=== PATIENT | male | born 1990 | race Caucasian/White ===

== ENCOUNTER 2017-12-02 15:17 | Observation (INO) | payer OTHER ==
[2017-12-02] MEDS ORDERED: BENADRYL 50 MG/ML IV ONE (15:25)
[2017-12-02] MEDS ORDERED: solu-MEDROL 125 MG IV ONE (15:25)
[2017-12-02] MEDS ORDERED: Sodium Chloride 0.9% 1000 ML 1,000 ML IV STA (15:25)
[2017-12-02] MEDS ORDERED: EPINEPHRINE 1MG/ML AMP IM ONE (15:25)
[2017-12-02] MEDS ORDERED: Pepcid 20 MG VIAL IV ONE ×2 (15:25→15:34)
[2017-12-02] MEDS ORDERED: DECADRON 10MG INJ. IV ONE (15:26)
[2017-12-02] MEDS ORDERED: BENADRYL 50 MG/ML ONE (15:34)
[2017-12-02] MEDS ORDERED: DECADRON 10MG INJ. ONE (15:35)
[2017-12-02] MEDS ORDERED: EPINEPHRINE 1MG/ML AMP ONE (15:35)
[2017-12-02] MEDS ORDERED: solu-MEDROL 125 MG ONE (15:35)
[2017-12-02] MEDS ORDERED: Sodium Chloride 0.9% 1000 ML 1,000 ML ONE (15:35)
[2017-12-02] MEDS ORDERED: Sodium Chloride 0.9% 1000 ML 1,000 ML IV SCH ×2 (17:30→19:00)
--- NOTE | 2017-12-02 18:48 | ERPHSYRPT ---
- History of Present Illness Time Seen by Provider: 12/02/17 15:40 Source: patient Exam Limitations: clinical condition Patient Subjective Stated Complaint: Allergic reaction, throat swelling, redness to chest. Triage Nursing Assessment: Pt presents to the ED with complaints of throat swelling and redness to chest after eating. Pt denies hx of allergic reactions. Pt states he felt short of breath, but improved with benadryl use. No distress noted on arrival, skin PWD, respirations even and unlabored. 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 DENIES STRIDOR OR DIFFICULTY BREATHING. Quality: itchy Severity: severe Location: face, extremities Possible Causes: no cause identified Associated Symptoms: other (DIFFICULTY BREATHING OR SWALLOWING.) Allergies/Adverse Reactions: sulfamethoxazole [From Bactrim] Allergy (Intermediate, Verified 12/02/17 15:30) Swelling of Face trimethoprim [From Bactrim] Allergy (Intermediate, Verified 12/02/17 15:30) Swelling of Face Home Medications: No Reportable Medications [No Reported Medications] 12/02/17 [History] Hx Tetanus, Diphtheria Vaccination/Date Given: Yes Hx Influenza Vaccination/Date Given: No Hx Pneumococcal Vaccination/Date Given: No Immunizations Up to Date: No - Review of Systems Constitutional: No Fever, No Chills Eyes: No Symptoms Ears, Nose, & Throat: Throat Swelling Respiratory: No Cough, No Dyspnea Cardiac: No Symptoms Abdominal/Gastrointestinal: No Abdominal Pain, No Nausea, No Vomiting, No Diarrhea Skin: Other (HIVES) - Past Medical History Pertinent Past Medical History: No Neurological History: No Pertinent History ENT History: No Pertinent History Cardiac History: No Pertinent History Respiratory History: No Pertinent History Endocrine Medical History: No Pertinent History Musculoskeletal History: No Pertinent History GI Medical History: No Pertinent History History: No Pertinent History Psycho-Social History: No Pertinent History Male Reproductive Disorders: No Pertinent History - Past Surgical History Past Surgical History: No Neuro Surgical History: No Pertinent History Cardiac: No Pertinent History Respiratory: No Pertinent History Gastrointestinal: No Pertinent History Genitourinary: No Pertinent History Musculoskeletal: No Pertinent History Male Surgical History: No Pertinent History - Social History Smoking Status: Light tobacco smoker Exposure to second hand smoke: Yes Drug Use: none Patient Lives Alone: No - Nursing Vital Signs Nursing Vital Signs: Initial Vital Signs Temperature 98.2 F 04/16/18 15:24 Pulse Rate 92 H 12/02/17 15:24 Respiratory Rate 16 12/02/17 15:24 Blood Pressure 170/101 12/02/17 15:24 O2 Sat by Pulse Oximetry 99 12/02/17 15:24 Pain Scale Pain Intensity 0 - Physical Exam General Appearance: no apparent distress, alert, other (ARRIVES TO EMERGENCY ROOM VIA EMS NO STRIDOR, NO ACCESSORY MUSCLE USE) Eye Exam: PERRL/EOMI, eyes nml inspection Ears, Nose, Throat Exam: pharynx normal, moist mucous membranes, other (MARKED SWELLING ELONGATION ANGIOEDEMA UVULA WITH POST PHARYNGEAL EDEMA) Neck Exam: normal inspection, non-tender, supple, full range of motion Respiratory Exam: normal breath sounds, lungs clear, other (NO WHEEZES OR RHONCHI), No respiratory distress Cardiovascular Exam: regular rate/rhythm, normal heart sounds Gastrointestinal/Abdomen Exam: soft, mass, No tenderness Back Exam: normal inspection, normal range of motion, No CVA tenderness, No vertebral tenderness Extremity Exam: normal inspection, normal range of motion Neurologic Exam: alert, oriented x 3, cooperative, normal mood/affect, sensation nml, No motor deficits Skin Exam: normal color, warm, dry SpO2: 97 Oxygen Delivery: Room Air - CT Exams Soft Tissue Neck CT Interpretation: Discussed w/radiologist (PROMINENT ELONGATION OF UVULA, OTHERWISE NEGATIVE) Ordered Tests: Active Orders 24 hr Category Date Time Status NECK WITH CONTRAST [CT] Stat Exams 12/02/17 18:28 Taken Medication Summary Generic Name Dose Route Start Last Admin Trade Name Freq PRN Reason Stop Dose Admin Sodium Chloride 1,000 mls @ 100 mls/hr 12/02/17 17:30 12/02/17 17:36 Sodium Chloride 0.9% 1000 Ml IV 01/01/18 17:29 100 mls/hr .Q10H JOE Administration Discontinued Medications Generic Name Dose Route Start Last Admin Trade Name Freq PRN Reason Stop Dose Admin Dexamethasone Sodium Phosphate 20 mg 12/02/17 15:26 12/02/17 15:39 Decadron 10mg Inj. IV 12/02/17 15:27 20 mg STAT ONE Administration Dexamethasone Sodium Phosphate Confirm 12/02/17 15:35 Decadron 10mg Inj. Administered 12/02/17 15:36 Dose 20 mg .ROUTE .STK-MED ONE Diphenhydramine HCl 50 mg 12/02/17 15:25 12/02/17 15:39 Benadryl 50 Mg/Ml IV 12/02/17 15:26 50 mg STAT ONE Administration Diphenhydramine HCl Confirm 12/02/17 15:34 Benadryl 50 Mg/Ml Administered 12/02/17 15:35 Dose 50 mg .ROUTE .STK-MED ONE Epinephrine HCl 0.3 mg 12/02/17 15:25 12/02/17 15:38 Epinephrine 1mg/Ml Amp IM 12/02/17 15:26 0.3 mg STAT ONE Administration Epinephrine HCl Confirm 12/02/17 15:35 Epinephrine 1mg/Ml Amp Administered 12/02/17 15:36 Dose 1 mg .ROUTE .STK-MED ONE Famotidine 20 mg 12/02/17 15:25 12/02/17 15:39 Pepcid 20 Mg Vial IV 12/02/17 15:26 20 mg STAT ONE Administration Famotidine Confirm 12/02/17 15:34 Pepcid 20 Mg Vial Administered 12/02/17 15:35 Dose 20 mg IV .STK-MED ONE Sodium Chloride 1,000 mls @ 999 mls/hr 12/02/17 15:25 12/02/17 15:38 Sodium Chloride 0.9% 1000 Ml IV 12/02/17 16:25 999 mls/hr .Q1H1M STA Administration Sodium Chloride Confirm 12/02/17 15:35 Sodium Chloride 0.9% 1000 Ml Administered 12/02/17 15:36 Dose 1,000 mls @ ud .ROUTE .STK-MED ONE Methylprednisolone Sodium Succinate 125 mg 12/02/17 15:25 12/02/17 15:39 Solu-Medrol 125 Mg IV 12/02/17 15:26 125 mg STAT ONE Administration Methylprednisolone Sodium Succinate Confirm 12/02/17 15:35 Solu-Medrol 125 Mg Administered 12/02/17 15:36 Dose 125 mg .ROUTE .STK-MED ONE - Progress Progress: improved Progress Note: 12/02/17 18:52 ADMINISTERED IV BENADRYL 50MG VIA EMS, IV NORMAL SALINE 1 LITER/HR, BENADRYL 50MG, PEPCID 20 MG, DECADRON 20MG, SOLUMEDROL 125MG IV Discussed with Dr.: Valente, Other (DISCUSSED WITH DR SAUCEDO AT 1845 FOR OBSERVATION) - Departure Time of Disposition: 19:00 Departure Disposition: Observation Clinical Impression: ALLERGIC REACTION, POSTERIOR PHARYNX ANGIOEDEMA Condition: Stable Critical Care Time: No Referrals: DOCTOR,NO FAMILY [Primary Care Provider] -
[2017-12-02] MEDS ORDERED: Zofran 4 MG/2 ML VIAL IV PRN (19:00)
[2017-12-02] MEDS ORDERED: BENADRYL 50 MG/ML IV PRN (19:05)
[2017-12-02] MEDS: solu-MEDROL 125 MG IV SCH (20:55)
[2017-12-02] MEDS ORDERED: Pepcid 20 MG VIAL IV SCH (22:00)
[2017-12-03] MEDS: solu-MEDROL 125 MG IV SCH (03:05)
[2017-12-03 07:13] VITALS: BP 136/58; PULSE 81; O2SAT 98
--- NOTE | 2017-12-03 08:21 | PCM.HP ---
History of Present Illness - Chief Complaint Chief Complaint: difficulty breathing Date: 12/03/17 History of Present Illness: is a 27 year old male. 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 He came to ED and was found to have hives and a swollen uvula consistent with angioedema. He was given benadryl, pepcid and steroids and it has improved overnight and no symptoms currently and breathing well. - Review of Systems Constitutional: No Fever, No Chills Eyes: No Symptoms Ears, Nose, & Throat: No Symptoms Respiratory: No Cough, No Short Of Breath Cardiac: No Chest Pain, No Edema, No Syncope Abdominal/Gastrointestinal: No Abdominal Pain, No Nausea, No Vomiting, No Diarrhea Genitourinary Symptoms: No Dysuria Musculoskeletal: No Back Pain, No Neck Pain Skin: No Rash Neurological: No Dizziness, No Focal Weakness, No Sensory Changes Psychological: No Symptoms Endocrine: No Symptoms Hematologic/Lymphatic: No Symptoms Immunological/Allergic: No Symptoms Medications & Allergies Home Medications: Home Medication List Epinephrine 0.15 mg IM UD #2 auto.injct 12/03/17 [Rx] Prednisone 20 mg [Deltasone 20 mg] 40 mg PO UD #15 tablet 12/03/17 [Rx] Allergies/Adverse Reactions: Allergies Allergy/AdvReac Type Severity Reaction Status Date / Time sulfamethoxazole Allergy Intermediate Swelling Verified 12/02/17 15:30 [From Bactrim] of Face trimethoprim [From Bactrim] Allergy Intermediate Swelling Verified 12/02/17 15: 30 of Face - Past Medical History Past Medical History: No Neurological History: No Pertinent History ENT History: No Pertinent History Cardiac History: No Pertinent History Respiratory History: No Pertinent History Endocrine Medical History: No Pertinent History Musculoskelatal History: No Pertinent History GI Medical History: No Pertinent History History: No Pertinent History Pyscho-Social History: No Pertinent History Male Reproductive Disorders: No Pertinent History - Past Surgical History Past Surgical History: Yes Neuro Surgical History: No Pertinent History Cardiac History: No Pertinent History Respiratory Surgery: No Pertinent History GI Surgical History: No Pertinent History Genitourinary Surgical Hx: No Pertinent History Musculskeletal Surgical Hx: No Pertinent History Male Surgical History: No Pertinent History Other Surgical History: Tee and screws leg, thumb - Social History Smoking Status: Current every day smoker Exposure to second hand smoke: Yes Alcohol: Occasionally Drug Use: none - Physical Exam Vital Signs: Vital Signs - 24 hr Temp Pulse Resp BP Pulse Ox 12/03/17 07:11 98 F 81 18 136/58 98 12/03/17 04:00 97.8 F 70 18 144/63 95 12/03/17 03:00 97.8 F 70 18 144/63 95 12/03/17 00:00 97.5 F 71 18 133/60 96 12/02/17 23:49 97.5 F 71 18 133/60 96 12/02/17 20:44 97.7 F 97 H 18 133/80 97 12/02/17 19:49 97.7 F 97 H 18 133/80 97 12/02/17 18:55 97 12/02/17 18:20 98.2 F 83 16 167/97 97 12/02/17 17:47 98 12/02/17 17:46 100 H 16 145/76 98 12/02/17 16:58 100 H 18 138/79 98 12/02/17 15:24 98.2 F 92 H 16 170/101 99 General Appearance: no apparent distress, alert Neurologic Exam: alert, oriented x 3, cooperative, normal mood/affect, nml cerebellar function, nml station & gait, sensation nml, No motor deficits Eye Exam: PERRL/EOMI, eyes nml inspection Ears, Nose, Throat Exam: normal ENT inspection, TMs normal, pharynx normal, moist mucous membranes, other (uvula slightly red and elongated not swollen non obstructing) Neck Exam: normal inspection, non-tender, supple, full range of motion Respiratory Exam: normal breath sounds, lungs clear, No respiratory distress Cardiovascular Exam: regular rate/rhythm, normal heart sounds, normal peripheral pulses Gastrointestinal/Abdomen Exam: soft, normal bowel sounds, No tenderness, No mass Back Exam: normal inspection, normal range of motion, No CVA tenderness, No vertebral tenderness Extremity Exam: normal inspection, normal range of motion, pelvis stable Skin Exam: normal color, warm, dry, No rash Lymphatic Exam: No adenopathy Assessment/Plan (1) Allergic reaction Status: Acute Code(s): T78.40XA - ALLERGY, UNSPECIFIED, INITIAL ENCOUNTER (2) Angioedema Status: Acute Assessment & Plan: 1st occurrence and resolved currently no known exposure may need testing for C1 esterace deficiency vs allergy testing as he is currently asymptomatic and resolved will d/c to home epinephrine pen and steroid taper Rx given with instructions detailed on when to use epi pen and importance of presentation to hospital if he needs to use this. Code(s): T78.3XXA - ANGIONEUROTIC EDEMA, INITIAL ENCOUNTER
--- NOTE | 2017-12-03 08:24 | PCM.DCORD ---
- Discharge Discharge Date: 12/03/17 Disposition: Home, Self-Care Condition: Stable Prescriptions: New Prednisone 20 mg [Deltasone 20 mg] 40 mg PO UD #15 tablet Epinephrine 0.15 mg IM UD #2 auto.injct Additional Instructions: Mr. Law may return to work with no restrictions 12/03/17
--- NOTE | 2017-12-03 09:06 | XRAY ---
Indication: Throat swelling following eating. Multiple contiguous axial images obtained through the neck using 60 cc Isovue 370 contrast. Sagittal and coronal reformatted images obtained. Comparison: None Supra and infraglottic airway widely patent. Normal epiglottis. Prominent/elongated uvula. Scattered small benign cervical lymph nodes bilaterally. No pathologic lymphadenopathy. Parotid and submandibular glands bilaterally symmetric. Major arteries and veins are normal in course and caliber. Thyroid gland enhances homogeneously. Underlying cervical spine intact. Minimal mucosal thickening of both maxillary sinuses. Base of the brain and lung apices unremarkable. Impression: 1. Minimal maxillary sinus disease. 2. Remaining CT neck with contrast exam is negative. CT DI 11.90
[2017-12-03] MEDS ORDERED: solu-MEDROL 125 MG IV SCH (12:00)
== END 2017-12-03 08:55 | disposition home or self-care (01) ==
LOC: ED 15:17 → MED SURG 19:47
PROVIDERS: ADMIT Family Medicine; ATTEND Family Medicine
DX: T78.40XA Allergy, unspecified, initial encounter (principal); T78.3XXA Angioneurotic edema, initial encounter
CPT/HCPCS: 70491; 96360; 96361; 96372; 96374; 96375; 99285; G0378; 99283; J0171; J1100; J1200; J2930